=== PATIENT | female | born 1955 | race Caucasian/White ===

== ENCOUNTER 2017-05-13 21:05 | Emergency (ER) | payer SELFPAY ==
[~2017-05-13] VITALS: Ht 177.8 cm; Wt 70.3 kg
[2017-05-13 21:15] VITALS: BP 146/82
[2017-05-13] MEDS ORDERED: FIORICET1 EA ORAL (21:16)
[2017-05-13] MEDS ORDERED: IBUPROFEN600 MG ORAL (21:37)
--- NOTE | 2017-05-13 21:38 | Emergency Room Report ---
History of Present Illness General Chief Complaint: Skin Rash/Abscess Source: Patient Present Illness [facility] This is a 62-year-old female with no significant past medical history. She presents with chief complaint of left ankle pain. Onset about 3 weeks ago. She had a rash of the ankle area. It was hurting a little bit. Saw her doctor put her on antifungal cream. Rash motion through. She has some soreness over the ankle area. Worse with walking. No trauma. She felt is some swelling. She looked up symptoms on the Internet and thought that she may have a blood clot. Is why she is here. No fever or chills. No calf tenderness. Not on control. Allergies: Coded Allergies: ACETAMINOPHEN (Verified Allergy, Unknown, 05/13/17) HYDROCODONE (Verified Allergy, Unknown, 05/13/17) SULFA (SULFONAMIDE ANTIBIOTICS) (Verified Allergy, Unknown, 05/13/17) Patient History Past Medical History: see triage record, old chart reviewed Past Surgical History: other Pertinent Family History: none Social History: Denies: smoking Now: No Immunizations: other Reviewed Nursing Documentation: PMH: Agreed, PSxH: Agreed Nursing Documentation-PMH Hx Gastrointestinal Problems: Yes - DIVERTICULITIS Hx Neurological Problems: Yes - MIGRAINE HEADACHE Review of Systems Eye: Denies: eye pain, blurred vision ENT: Denies: ear pain, nose congestion, throat swelling Respiratory: Denies: cough, shortness of breath Cardiovascular: Denies: chest pain, palpitations Gastrointestinal: Denies: abdominal pain, diarrhea, nausea, vomiting Musculoskeletal: Reports: joint pain, Denies: back pain Skin: Denies: rash Neurological: Denies: headache, numbness Endocrine: Denies: increased thirst, increased urine Hematologic/Lymphatic: Denies: easy bruising All Other Systems: negative except mentioned in HPI Physical Exam Vital Signs Date Time Temp Pulse Resp B/P (MAP) Pulse Ox O2 Delivery O2 Flow Rate FiO2 05/13/17 21:08 97.9 92 16 146/82 100 Room Air vitals normal Sp02 EP Interpretation: reviewed, normal General Appearance: well appearing, no apparent distress, alert Head: normocephalic, atraumatic Eyes: bilateral eye PERRL, bilateral eye EOMI ENT: hearing grossly normal, normal pharynx Neck: full range of motion, supple, no meningismus Respiratory: chest non-tender, lungs clear, normal breath sounds Cardiovascular #1: regular rate, rhythm, no murmur Gastrointestinal: normal bowel sounds, non tender, no mass, no organomegaly, no bruit, non-distended Musculoskeletal: back normal, gait/station normal, normal range of motion, other - Left ankle: There is a small fatty tissue does above the lateral malleolus. This is the same as the right ankle. Minimal tenderness. No calf tenderness. No calf swelling. Neurologic: alert, oriented x3 Psychiatric: mood/affect normal Skin: warm/dry Medical Decision Making Diagnostic Impression: Primary Impression: Arthralgia of ankle, left ER Course Patient with tenderness of the left ankle. I see no trauma. I don't see any swelling. No evidence of DVT or abscess or infection. We'll discharge home. Last Vital Signs Date Time Temp Pulse Resp B/P (MAP) Pulse Ox O2 Delivery O2 Flow Rate FiO2 05/13/17 21:15 97.9 92 16 146/82 100 Room Air Status: unchanged Disposition: HOME, SELF-CARE Condition: Stable Scripts Ibuprofen* (MOTRIN*) 600 Mg Tablet 600 MG ORAL THREE TIMES A DAY, #30 TAB 0 Refills Prov: DELILAH LEE M.D. 05/13/17 Additional Instructions: Followup with your Dr. in 7 days. Return if symptom worsen. DELILAH LEE M.D. May 13, 2017 21:37
[2017-05-13 21:42] VITALS: BP 146/82
== END 2017-05-13 21:43 | disposition home or self-care (01) ==
LOC: EMR 21:30
DX: M25.572 Pain in left ankle and joints of left foot (principal); Z88.6 Allergy status to analgesic agent; Z88.2 Allergy status to sulfonamides
CPT/HCPCS: 99283